=== PATIENT | male | born 1960 | race Caucasian/White ===

== ENCOUNTER 2019-05-18 09:52 | Observation (INO) ==
[2019-05-18 11:06] LABS: BASO# 0.04 X1000 (0.0-0.2); BASO% 0.5 % (0.0-0.8); EOS# 0.01 X1000 (0.0-0.7); EOS% 0.1 % (0.0-10.0); HEMATOCRIT 42.5 % (42.0-52.0); HEMOGLOBIN 13.9 g/dL (14.0-18.0); LYMPH# 0.91 X1000 (1.2-3.4); LYMPH% 12.4 % (20.5-51.1); MCH 30.2 PG (27-31); MCHC 32.7 g/dL (33-37); MCV 92.2 FL (81-99); MONO# 0.36 X1000 (0.11-0.59); MONO% 4.9 % (1.7-9.3); MPV 10.5 FL (7.4-10.4); NEUT# 6.01 X1000 (1.4-6.5); NEUT% 82.1 % (42.2-75.2); PLT 288 X1000 (130-400); RBC 4.61 XMIL (4.7-6.1); RDW 14.9 % (11.5-14.5); WBC 7.33 X1000 (4.8-10.8)
[2019-05-18 11:08] LABS: URINE SOURCE CLEAN CATCH
[2019-05-18 11:11] LABS: BILIRUBIN URINE NEGATIVE (NEGATIVE); BLOOD URINE NEGATIVE (NEGATIVE); COLOR YELLOW; GLUCOSE URINE NEGATIVE (NEGATIVE); KETONE URINE NEGATIVE (NEGATIVE); LEUKOCYTES URINE SMALL (NEGATIVE); NITRITE URINE NEGATIVE (NEGATIVE); PH URINE 6.5; PROTEIN URINE TRACE mg/dL (NEGATIVE); SP GRAVITY URINE 1.023; TURBIDITY URINE CLEAR (CLEAR); UROBILINOGEN URINE NORMAL (NORMAL)
[2019-05-18 11:13] LABS: UR EPITHELIAL CELLS <10 /HPF (<10); URINE BACTERIA NEGATIVE /HPF; URINE RBC <10 /HPF (<10); URINE WBC <10 /HPF (<10)
[2019-05-18 11:26] LABS: AGAP 12; ALB/GLOB RATIO 1.5; ALBUMIN 3.9 g/dL (3.5-5.0); ALKALINE PHOSPHATASE 47 U/L (32-122); BUN 12 mg/dL (8-22); CALCIUM 8.7 mg/dL (8.8-10.2); CHLORIDE 106 mmol/L (98-107); COSMO 278; CREATININE 0.9 mg/dL (0.7-1.2); ESTIMATED GFR > 60; GLUCOSE 104 mg/dL (70-104); GOT 23 U/L (10-34); GPT 27 U/L (10-44); POTASSIUM 4.3 mmol/L (3.5-5.1); SODIUM 139 mmol/L (136-145); TCO2 21 mmol/L (25-35); TOTAL BILIRUBIN 0.59 mg/dL (0.20-1.00); TOTAL PROTEIN 6.5 g/dL (6.3-8.3)
--- NOTE | 2019-05-18 12:08 | Diag Imaging Result Doc PS360 ---
CT ABD/PELVIS W/PO AND IV CON - 05/18/2019 INDICATION: lower gi bleeding COMPARISON: None FINDINGS: The lung bases are clear and the heart size is normal. The liver, gallbladder, spleen, pancreas, adrenals, and kidneys are normal. No bowel obstruction or inflammation. There is significant diverticulosis of the descending and sigmoid colon. No bowel obstruction or inflammation. Urinary bladder, prostate, and rectum are normal. There are moderate degenerative changes of the spine. No acute or suspicious bony lesion. IMPRESSION: Diverticulosis coli. This exam was performed using automated exposure control, adjustment of mA or kV according to patient size, and/or use of iterative reconstruction technique Electronically signed by Paul Arzate 05/18/2019 12:06 PM
--- NOTE | 2019-05-18 12:47 | EKG Report ---
Test Performed on : 05/18/2019 12:38:29 PM Test Reason : RECTAL BLEEDING Blood Pressure : / mmHG Vent. Rate : 085 BPM Atrial Rate : 085 BPM P-R Int : 164 ms QRS Dur : 096 ms QT Int : 374 ms P-R-T Axes : 037 -49 001 degrees QTc Int : 445 ms Normal sinus rhythm. Incomplete right bundle branch block Left anterior fascicular block Abnormal ECG No previous ECGs available Unconfirmed Result
[2019-05-18] MEDS ORDERED: TYLENOL PO PRN (13:33)
[2019-05-18] MEDS ORDERED: ZOFRAN IV PRN (13:33)
[2019-05-18] MEDS ORDERED: SODIUM CHLORIDE 0.9% INJ SCH (13:45)
[2019-05-18] MEDS ORDERED: CARAFATE LIQUID PO SCH (14:00)
[2019-05-18] MEDS: PROTONIX IV SCH (14:34)
[2019-05-18] MEDS: NS 1,000 ML IV SCH (14:37)
--- NOTE | 2019-05-18 14:54 | HISTORY AND PHYSICAL ---
PRIMARY CARE PROVIDER: Kobi Escobedo MD. CHIEF COMPLAINT: Bloody stools. HISTORY OF PRESENT ILLNESS: Mr. Matt Miller is a 59-year-old male with a medical history of hypertension, hyperlipidemia, hypothyroidism, rosacea, prostatitis in the past who was at his usual normal state of health until yesterday around 5 p.m. He started having bloody bright red diarrhea type stools about once every hour to every 1/2 hour, in total around 15 he feels like. They stopped around 5 o'clock this morning when he also had a near syncopal episode. He denies any nausea vomiting, weight changes or changes in his diet, denies abdominal pain. States he does have 1 hemorrhoid that occasionally can bleed but it is usually just worth one wipe of toilet paper, not large amounts of blood. Dr. Anand plans to come and do a lower colonoscopy in the morning. Currently, hemoglobin hematocrit are stable at 13 and 42, he has had no more bowel movements since 5 o'clock this morning. Given the near syncopal episode and the frequent bloody stools, we will monitor him overnight and transfer to [facility]. He will go for colonoscopy in the morning. Currently vital signs are stable. PAST MEDICAL HISTORY: 1. Hypertension. 2. Hyperlipidemia. 3. Hypothyroidism. 4. Low testosterone. 5. Rosacea. He is chronically on lifelong minocycline. 6. Prostatitis 2 years ago. Resolved. 7. One hemorrhoid with a rare occasional bleed from it, but very small amount. 8. Morbid obesity. BMI of 40.4. 9. Diverticulosis. 10.IBS SURGICAL HISTORY: 1. Prostate biopsy by Dr. Herman. Ruled out for cancer. 2. Appendectomy. SOCIAL HISTORY: Denies tobacco, only drinks 1 or 2 alcoholic beverages which is either beer or wine about 1 or 2 times per week. His elderly parents live with him for him to be able to care for them. 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 FAMILY HISTORY: Mother at the age of 68 had a CVA. Father apparently had diabetes, dementia, and prostate cancer. Grandfather had CO at 81. ALLERGIES: No known drug allergies. HOME MEDICATIONS: 1. Amlodipine besylate 10 mg p.o. daily. 2. Atorvastatin calcium 20 mg p.o. daily. 3. Hydrochlorothiazide 25 mg p.o. daily. 4. Synthroid 137 mcg p.o. daily. 5. Minocycline 50 mg p.o. daily. 6. Testosterone 300 mg IM every 3 weeks. Further questioning on medication regimen he denies any gastric erosive type medications such as ibuprofen, aspirin, BC powders. He also denies nausea, vomiting, and denies chest pain. REVIEW OF SYSTEMS: Fourteen point review of systems are complete and all were negative except for those mentioned above in the HPI. PHYSICAL EXAMINATION: VITAL SIGNS: Temperature 98.1 degrees, heart rate 100, respiratory rate 18, blood pressure 131/87, O2 saturation 98%. 5 feet 6 inches tall, 250 pounds. BMI is 40.4. GENERAL: Mr. Miller is a 59-year-old male. He is in no acute distress. He is able to answer questions appropriately. HEENT: Atraumatic, normocephalic. Pupils equal, round, reactive to light. Extraocular movements intact. Mucous membranes are moist. NECK: Trachea midline. CARDIOVASCULAR: S1, S2. Regular rate and rhythm. No rubs, gallops, murmurs. EXTREMITIES: Trace lower extremity edema. +2 dorsalis and radial pulses. Negative JVD or carotid bruits. PULMONARY: Clear to auscultate, bilateral breath sounds. No accessory muscle use or work of breathing noted. GI: Soft, nontender, nondistended. Positive bowel sounds x4. EXTREMITIES: Moves all extremities equally. Full range of motion. NEUROLOGIC: A and O x3. Follows commands. Sensory is intact. SKIN: Warm, dry, intact. LABORATORY DATA: White blood cells 7000, hemoglobin 13, hematocrit 42, platelet count 288,000. Sodium 139, potassium 4.3, BUN 12, creatinine 0.9, glucose 104 calcium 8.7, bilirubin 0.59. AST 23, ALT 27, troponins less than 0.01. Albumin 3.9, urinalysis trace protein, small leukocytes. IMAGING: Abdominal pelvic CT. Diverticulosis. There is significant diverticulosis of the descending and sigmoid colon. EKG normal sinus rhythm, rate 85, QTC 445. ASSESSMENT/PLAN: 1. Gastrointestinal bleeding likely secondary to diverticuli and possible from hemorrhoid. Will let him have clear liquids. He will be bowels prepped today, NPO after midnight for colonoscopy with Dr. Anand in the morning, Carafate q.6 hours and IV Protonix q.12 hours. Q 6 hour hgb and hct. 2. Hypertension. Since he had a near syncopal episode with his diarrhea this morning we will hold off on antihypertensives or any diuretics and hydrate him. 3. Hypothyroidism. We will continue his Synthroid. 4. Hyperlipidemia. Hold statin for now. 5. Low testosterone. Hold the testosterone for now. 6. Rosacea. Will hold antibiotic for now resume it on discharge. 7. Deep venous thrombosis prophylaxis. SCDs. 8. Obesity. Diet and exercise. Education prior to discharge. Dictated by KEON Diana for Omkar Estrada MD cc: KEON Diana MD I agree with most components of history, physical, assessment and plan. A separate addendum has been dictated. MTDAngus
[2019-05-18 15:00] LABS: IRON SATURATION 23 %; TIBC 231 ug/dL; TOTAL IRON 54 ug/dL (53-167); UNBOUND IRON 177 ug/dL (112-346)
[2019-05-18] MEDS ORDERED: GOLYTELY PO ONE ×2 (15:42→16:00)
[2019-05-18 16:32] LABS: HEMOGLOBIN 13.1 g/dL (14.0-18.0)
--- NOTE | 2019-05-18 16:58 | HISTORY AND PHYSICAL ---
ADDENDUM: This is an addendum to the history and physical by the nurse practitioner. I agree with most components of the history, physical, and plan. In brief, Mr. Miller is a 59-year-old man with a history of intermittent bleeding hemorrhoids since many years, hypertension, hyperlipidemia, prostatitis, morbid obesity, who came in with a chief complaint of bright red blood per rectum for about 12 hours' duration. He has had multiple bloody bowel movements. However, in the morning time when he went to the bathroom and when he was coming back, he had a near syncope episode and decided to come to the hospital. In the emergency room, his vitals were largely unremarkable and he was currently being admitted for observation and possible need for colonoscopy. He also mentions a prior history of irritable bowel syndrome. At the time of my evaluation, he does not appear to be in any acute distress. Oral cavity is moist. He denies any epigastric tenderness, nausea, vomiting, or abdominal cramps. He denies prior history of gastrointestinal bleed , though he previously did have intermittent bleeding hemorrhoids. He denies known history of constipation or known history of diverticulosis. He also mentioned that he may take about 2 tablets of Aleve in about 3 weeks' time for occasional aches and pain. VITAL SIGNS: Temperature 97.8 degrees, pulse 83, respiratory 20 blood pressure 135/88, saturating 100% on room air. PHYSICAL EXAMINATION: GENERAL: Morbidly obese, not in acute distress. HEENT: Oral cavity is moist. No pallor, cyanosis, clubbing, or icterus. LUNGS: Air entry bilaterally equal. No wheeze, rhonchi, crackles. CARDIOVASCULAR: S1, S2 normal. No murmur or gallop. ABDOMEN: Obese, soft, nontender. Active bowel sounds. EXTREMITIES: He has mild bilateral lower extremity edema. RECTAL: On external rectal examination I could see some bright red blood. There is a skin tag which looks like papilloma. I could not see any visible bleeding hemorrhoids. LABS: Suggestive of WBC of 7,000, hemoglobin of 13.9, normal platelet count. Essentially normal electrolytes. He does have a normal urinalysis. MICROBIOLOGY: No positive microbiological data. His urine culture was collected for some reason. However, he denies any symptoms to suggest a urinary tract infection. Stool occult blood test was positive. IMAGING: Abdomen and pelvis CT had diverticulosis coli. EKG had normal sinus rhythm. ASSESSMENT AND PLAN: 1. Acute gastrointestinal bleed, likely lower in origin from bleeding diverticula versus bleeding hemorrhoid. The possibility of brisk bleeding from peptic ulcer disease or ischemic colitis is extremely low. 2. Acute blood loss anemia with acceptable range of hemoglobin. 3. History of irritable bowel syndrome. 4. Essential hypertension. 5. Hyperlipidemia. 6. Hypothyroidism. PLAN: I will resuscitate the patient with intravenous fluids. I will keep him on prophylactic pantoprazole intravenous every 12 hours. I will resume most of his home medications as tolerated except antihypertensive medication. We will follow up with serial blood count. Gastroenterology will be consulted for need for possible colonoscopy. Plan of care discussed with the patient. His questions have been answered. cc: Omkar Estrada MD MTDD
[2019-05-18 18:38] LABS: HEMATOCRIT 39.9 % (42.0-52.0); HEMOGLOBIN 13.2 g/dL (14.0-18.0)
--- NOTE | 2019-05-18 19:37 | GASTROENTEROLOGY CONSULTATION ---
DATE: 05/18/2019 REASON FOR CONSULTATION: Rectal bleeding. HISTORY OF PRESENT ILLNESS: This is a 59-year-old male who reports onset of symptoms around 5 p.m. last evening. He was still at work at that time. He had an urgency for a bowel movement. He had an episode of liquid stool with bright red blood per rectum, reported as a large amount. He went home. He ate supper; he ate a hamburger. He then had 2 more episodes of loose stool and rectal bleeding, and then reports about every hour having an episode of bleeding. He reports having 12 to 15 episodes of bleeding since 5 p.m. yesterday. He states the last episode was this morning around 5 a.m. At that time, when he got up to go to the bathroom, he had episode of dizziness and diaphoresis. He did not pass out, but had presyncopal symptoms. He has denied chest pain or shortness of breath. No difficulty urinating. No reported abdominal pain. No reported upper GI symptoms of reflux, heartburn, nausea, or vomiting. No hematemesis. Patient reports having an upper and lower endoscopy over 20 years ago when he was in the . At that time, he was diagnosed with irritable bowel syndrome. He does report occasional issues with hemorrhoids, but the bleeding is usually a small amount when he wipes, not like this current episode. He did have a CT scan in the emergency room. No acute findings. Findings showing diverticulosis and moderate degenerative changes of the spine. No bowel obstruction or inflammation noted. PAST MEDICAL HISTORY: 1. Hypertension. 2. Hypercholesterolemia. 3. Hypothyroidism. 4. Rosacea. 5. History of prostatitis. 6. History of hemorrhoids. PAST SURGICAL HISTORY: 1. Prostate biopsy by Dr. Herman. 2. Appendectomy. ALLERGIES: No known drug allergies. HOME MEDICATIONS: 1. Amlodipine 10 mg daily. 2. Atorvastatin 20 mg daily. 3. Hydrochlorothiazide 25 mg daily. 4. Levothyroxine 137 mcg daily. 5. Monocycline 50 mg daily for rosacea. 6. Testosterone IM injection as indicated. SOCIAL HISTORY: He denies tobacco use. Reports alcohol use on occasion, about once to twice a week. He works at the [employer]. FAMILY HISTORY: Mother with history of CVA. Father had diabetes, dementia, history of prostate cancer. REVIEW OF SYSTEMS: Per History of Present Illness. PHYSICAL EXAMINATION: Vital Signs: Temperature 97.8 degrees, pulse 83, respirations 20, blood pressure 135/88. General: Patient is awake, alert, and in no acute distress. HEENT: Normocephalic, atraumatic. Pupils equal, round, reactive to light. Sclerae are nonicteric. Cardiovascular: Regular rate and rhythm. Respiratory: Lung sounds essentially clear bilaterally. Abdomen: Soft, nontender, obese, otherwise positive bowel sounds. Extremities: No lower extremity edema noted. LABORATORY: Hematology: WBC 7.33, hemoglobin 13.9, hematocrit 42.5, MCV 92.2, platelet 288,000. Chemistry: Sodium 139, potassium 4.3, chloride 106, CO2 21, BUN 12, creatinine 0.9, glucose 104, calcium 8.7, iron 54, TIBC 231, percent saturation 23, ferritin 78. Total bilirubin 0.59, AST 23, ALT 27, alkaline phosphatase 47. CT scan as reported above with no acute findings; findings of diverticulosis, but no evidence of diverticulitis. ASSESSMENT AND PLAN: Rectal bleeding. Hemoglobin and hematocrit are currently stable, 13.9 and 42.5. I will repeat hemoglobin and hematocrit. Monitor for any further active bleeding. Transfuse packed red blood cells as needed. We will prep the patient today and plan for a colonoscopy on . I have discussed the colonoscopy procedure along with benefits and risks with the patient, and he wishes to proceed. I have discussed this case with Dr. Anand. Further plans to be made according to findings. Thank you for this consultation. Dictated by KEON Stevenson for Nixon Anand MD cc: KEON Cueto MD
[2019-05-19] MEDS: PROTONIX IV SCH (01:47)
[2019-05-19] MEDS: NS 1,000 ML IV SCH (01:52)
[2019-05-19 06:34] LABS: BASO# 0.04 X1000 (0.0-0.2); BASO% 0.7 % (0.0-0.8); EOS# 0.18 X1000 (0.0-0.7); HEMATOCRIT 37.3 % (42.0-52.0); HEMOGLOBIN 12.1 g/dL (14.0-18.0); LYMPH# 1.59 X1000 (1.2-3.4); LYMPH% 26.7 % (20.5-51.1); MCH 30.3 PG (27-31); MCHC 32.4 g/dL (33-37); MCV 93.5 FL (81-99); MONO# 0.52 X1000 (0.11-0.59); MONO% 8.7 % (1.7-9.3); MPV 10.4 FL (7.4-10.4); NEUT# 3.62 X1000 (1.4-6.5); NEUT% 60.9 % (42.2-75.2); PLT 243 X1000 (130-400); RBC 3.99 XMIL (4.7-6.1); RDW 14.9 % (11.5-14.5); WBC 5.95 X1000 (4.8-10.8)
[2019-05-19 06:35] LABS: INR 1.15; PROTIME 14.9 Seconds (11.0-16.0)
[2019-05-19 06:36] LABS: PTT 28.6 Seconds (22.3-41.8)
[2019-05-19] MEDS ORDERED: SYNTHROID PO SCH ×2 (07:00)
--- NOTE | 2019-05-19 07:31 | EKG Report ---
Test Performed on : 05/19/2019 07:00:12 AM Test Reason : near syncope Blood Pressure : / mmHG Vent. Rate : 087 BPM Atrial Rate : 087 BPM P-R Int : 180 ms QRS Dur : 108 ms QT Int : 384 ms P-R-T Axes : 042 -47 007 degrees QTc Int : 462 ms Normal sinus rhythm. Incomplete right bundle branch block Left anterior fascicular block Abnormal ECG When compared with ECG of 18-MAY-2019 12:38, (Unconfirmed) No significant change was found Confirmed by Yaneth HOPE, Hong Chavez ([id number]) on 05/19/2019 7:43:11 PM
[2019-05-19] MEDS ORDERED: DIPRIVAN 1% ONE ×2 (07:42→08:44)
[2019-05-19] MEDS ORDERED: FENTANYL ONE (07:43)
[2019-05-19] MEDS ORDERED: XYLOCAINE-MPF 2% ONE (07:47)
[2019-05-19 08:29] LABS: AGAP 11; ALB/GLOB RATIO 1.4; ALBUMIN 3.4 g/dL (3.5-5.0); ALKALINE PHOSPHATASE 41 U/L (32-122); BUN 8 mg/dL (8-22); CALCIUM 8.1 mg/dL (8.8-10.2); CHLORIDE 107 mmol/L (98-107); COSMO 282; CREATININE 0.9 mg/dL (0.7-1.2); ESTIMATED GFR > 60; GLUCOSE 111 mg/dL (70-104); GOT 20 U/L (10-34); GPT 19 U/L (10-44); MAGNESIUM 1.9 mg/dL (1.5-2.7); POTASSIUM 4.1 mmol/L (3.5-5.1); SODIUM 142 mmol/L (136-145); TCO2 24 mmol/L (25-35); TOTAL BILIRUBIN 0.69 mg/dL (0.20-1.00); TOTAL PROTEIN 5.9 g/dL (6.3-8.3)
[2019-05-19] MEDS ORDERED: LIPITOR PO SCH ×2 (09:00→10:00)
[2019-05-19] MEDS ORDERED: HYDROCHLOROTHIAZIDE PO SCH ×2 (09:00→10:00)
[2019-05-19] MEDS ORDERED: NORVASC PO SCH ×2 (09:00→10:00)
--- NOTE | 2019-05-19 09:01 | ENDOSCOPY OPERATIVE NOTE ---
[facility] ENDOSCOPY OPERATIVE NOTE , COLONOSCOPY PROCEDURE REPORT PATIENT NAME: Matt Miller ADMISSION DATE: 05/19/2019 MR #: [id number] BIRTHDATE: 1960 SURGEON: Nixon Anand MD SENIOR MANAGING DIRECTOR: Lazara Guidry PROCEDURE DATE: 05/19/2019 STATUS: inpatient INDICATIONS: The patient is a 59 yr old male here for a colonoscopy due to hematochezia and anemia, non-specific. PROCEDURE PERFORMED: Colonoscopy with snare polypectomy MEDICATIONS: Per Anesthesia PREP TYPE: GoLytely
--- NOTE | 2019-05-19 09:03 | PROGRESS NOTE ---
DATE: 05/19/2019 INTERVAL HISTORY: No acute events overnight. He has had multiple bowel movements overnight. He states some of them where initially mixed with blood. Later on, they started to become more clear. His hemoglobin is largely stable, though it did drop from 13.9 to 12.1. SUBJECTIVE: He denies any nausea, vomiting, or abdominal pain. VITALS: Temperature 98.4 degrees, pulse 87, respiratory rate 19, blood pressure 140/75, saturating 99% on room air. PHYSICAL EXAMINATION: Morbidly obese. Not in any acute distress. Oral cavity is moist. Lungs: Air entry bilaterally equal. No wheeze, rhonchi, or crackles. Cardiovascular: S1, S2 normal. No murmur, rub, or gallop. Abdomen: Soft, nontender. Mild lower extremity edema. LABS: Suggestive of hemoglobin of 12.1. His WBC, platelets, and electrolytes are normal. Urine culture, no growth. ASSESSMENT AND PLAN: 1. Acute gastrointestinal bleed, likely lower in origin from bleeding diverticulosis versus bleeding hemorrhoids. Continue nothing per oral status. Patient to undergo colonoscopy today. I will keep him on intravenous fluids. I will also keep him on intravenous pantoprazole prophylactically until the colonoscopy is done. 2. Acute blood loss anemia. Currently acceptable range of hemoglobin without any need for transfusion. 3. History of irritable bowel syndrome. 4. Essential hypertension, currently normotensive. I will resume his hydrochlorothiazide and amlodipine as tolerated later during the day. 5. Hyperlipidemia and hypothyroidism. I will resume his medications. 6. Plan. The patient undergo colonoscopy. I will follow up post colonoscopy recommendations and findings. Plan of care discussed with him. His questions have been answered. cc: Omkar Estrada MD
[2019-05-19] MEDS ORDERED: TYLENOL PO PRN (09:53)
[2019-05-19] MEDS ORDERED: ZOFRAN IV PRN (09:54)
[2019-05-19 10:59] VITALS: BP 129/78
--- NOTE | 2019-05-20 04:58 | DISCHARGE SUMMARY ---
ADMISSION DATE: 05/18/2019 DISCHARGE DATE: 05/19/2019 DISCHARGE DISPOSITION: Home with family. DISCHARGE CONDITION: Hemodynamically stable. No nausea, vomiting, or abdominal pain. His colonoscopy did not have any active bleeding. VITALS: At the time of discharge, temperature 98.4 degrees, pulse 83, respiratory rate 16, blood pressure 129/78, and saturating 98% on room air. DISCHARGE DIAGNOSES: 1. Acute gastrointestinal bleed, most likely lower. 2. Colonic diverticulosis. 3. Acute blood loss anemia which did not require transfusion. OTHER DIAGNOSES: 1. History of irritable bowel syndrome. 2. History of essential hypertension. 3. Hyperlipidemia. 4. Hypothyroidism. 5. History of bleeding hemorrhoids in the past. DISCHARGE MEDICATIONS: 1. Amlodipine 10 mg daily. 2. Atorvastatin 20 mg daily. 3. Hydrochlorothiazide 25 mg daily. 4. Levothyroxine 137 mcg daily. 5. Minocycline 50 mg daily. 6. Testosterone 300 mg intramuscular every 3 weeks. CONSULTATIONS AND PROCEDURES DURING HOSPITAL ADMISSION: Dr. Anand, Gastroenterology. PROCEDURE: He underwent a colonoscopy. The colonoscopy found two 3 to 5 mm polyps in the ascending colon. Polypectomies were performed using snare cautery. A 15 mm pedunculated polyp in the sigmoid colon. Polypectomy was performed using snare cautery. Moderate nonbleeding diverticulosis in the sigmoid colon. No evidence of angiectasia or AVM. No evidence of ulcer or tumor. Colon mucosa otherwise was normal. PHYSICAL EXAMINATION: On the day of discharge, oral cavity was moist. Air entry bilaterally equal. No wheeze, rhonchi or crackle. Breath sounds are normal. No murmur or gallop. Abdomen is soft, obese, and nontender. Mild lower extremity edema. He was alert and oriented x3. SIGNIFICANT LABORATORY DURING HOSPITAL ADMISSION AND DISCHARGE: WBC 5.9. His hemoglobin on presentation was 13.9, which at the time of discharge was 12.1 within 24 hours. Platelets of 243,000. INR of 1.1. BUN of 8 and creatinine of 0.9. SIGNIFICANT MICROBIOLOGY: Urine culture did not have any growth. Stool occult blood test was positive. SIGNIFICANT IMAGING: Abdomen and pelvis CT had diverticulosis coli affecting descending and sigmoid colon without any bowel obstruction or inflammation. EKG on admission had normal sinus rhythm, and incomplete right bundle branch block. HOSPITAL COURSE SUMMARY: Mr. Miller is a 59-year-old man who was admitted on 05/18/2019 which he has complaints of bright red blood per rectum of about 12 hours duration. Associated with that on the day of presentation, he also had a near syncopal episode when he was trying to get up from the bathroom so he decided to come to the emergency room. In the emergency room, he was hemodynamically stable. He did have bright red blood on rectal examination. It was decided to keep him inside the hospital for further monitoring. He was started on IV fluids, and the next day he underwent colonoscopy. He was detected to have diverticulosis and polyps, but there was no active bleeding. It was thought that his bleeding was diverticular in origin and had spontaneously stopped. He was advised to avoid NSAID medications, and keep regular bowel habits. He was okay to be discharged. TIME SPENT: More than 30 minutes were spent discharging this patient. cc: Omkar Estrada MD MTDD
--- NOTE | 2019-05-20 04:59 | DISCHARGE SUMMARY ---
ADMISSION DATE: 05/18/2019 DISCHARGE DATE: 05/19/2019 Addendum DISCHARGE MEDICATIONS: 1. Amlodipine 10 mg daily. 2. Atorvastatin 20 mg daily. 3. Hydrochlorothiazide 25 mg daily. 4. Levothyroxine 137 mcg daily. 5. Minocycline 50 mg daily. 6. Testosterone 300 mg intramuscular every 3 weeks. cc: Omkar Estrada MD
== END 2019-05-19 16:04 | disposition home or self-care (01) ==
LOC: ED 09:52 → 2N 09:53 → INTOOBSV 09:53
PROVIDERS: ATTEND Internal Medicine